=== PATIENT | female | born 1985 | race Caucasian/White ===

== ENCOUNTER 2018-09-11 08:00 | Emergency (ER) | payer MEDICAID ==
[~2018-09-11] VITALS: Ht 167.6 cm; Wt 91.0 kg
[2018-09-11 09:18] LABS: BASOPHILS % 0.6 % (0.0-2.0); EOSINOPHILS % 0.9 % (0.0-5.0); HEMATOCRIT. 35.5 % (36.0-48.0); HEMOGLOBIN. 11.7 g/dL (12.0-16.0); LYMPHOCYTES % 21.8 % (20.0-50.0); MEAN CORPUSCULAR HEMOGLOBIN 26.4 pg (28.0-32.0); MONOCYTES % 3.8 % (2.0-8.0); NEUTROPHILS % 72.9 % (40.0-76.0); PLATELET 293 x1000/uL (130-400); RED BLOOD CELL COUNT 4.43 mill/uL (4.2-5.4); RED CELL DISTRIBUTION WIDTH 14.9 % (11.6-14.6)
[2018-09-11 09:24] LABS: CHLORIDE 107 mEq/L (98-107)
[2018-09-11 12:54] VITALS: BP 121/82
== END 2018-09-11 13:05 | disposition home or self-care (01) ==
LOC: ER 08:11
DX: R06.4 Hyperventilation (principal); F43.9 Reaction to severe stress, unspecified; E03.9 Hypothyroidism, unspecified
CPT/HCPCS: 36415; 71045; 80053; 81025; 84484; 85025; 93005; 99284; Z7610